=== PATIENT | male | born 1970 | race Two or more races ===

== ENCOUNTER 2017-04-18 17:40 | Emergency (ER) | payer SELFPAY ==
--- NOTE | 2017-04-18 21:32 | Emergency Room Report ---
Medical Decision Making Disposition: ELOPED Referrals: NOT CHOSEN [place]/,REFERRING (PCP) MILTON BRISENO M.D. Apr 18, 2017 21:32
== END 2017-04-18 17:45 | disposition left against medical advice (07) ==
LOC: EDBD 17:40 → EMR 17:45
DX: M25.532 Pain in left wrist (principal); M25.561 Pain in right knee; Z53.21 Procedure and treatment not carried out due to patient leaving prior to being seen by health care provider
CPT/HCPCS: 99281